=== PATIENT | female | born 1955 | race Caucasian/White ===

== ENCOUNTER 2017-07-04 07:58 | Emergency (ER) | payer MEDICAID ==
[~2017-07-04] VITALS: Ht 162.6 cm; Wt 68.9 kg
[~2017-07-04 07:58] MED LIST: BACDS PO; CHLO25TA2 PO; CLIN300C53 PO; CLON-529 PO; HYDR-569 PO; LORA1TAB PO; POTA10TA36 PO; VENL150C58 PO
[2017-07-04 08:04] VITALS: BP 145/98
[2017-07-04] MEDS ORDERED: CHLO25CA10 PO (08:46)
== END 2017-07-04 09:05 | disposition home or self-care (01) ==
LOC: ER 07:59
DX: F10.20 Alcohol dependence, uncomplicated (principal); I10 Essential (primary) hypertension; E11.9 Type 2 diabetes mellitus without complications; F15.10 Other stimulant abuse, uncomplicated; F17.200 Nicotine dependence, unspecified, uncomplicated; Z56.0 Unemployment, unspecified; Z88.8 Allergy status to other drugs, medicaments and biological substances; Z79.899 Other long term (current) drug therapy
CPT/HCPCS: 82948; 99283

== ENCOUNTER 2018-10-30 07:36 | Day surgery (SDC) | payer MEDICARE, MEDICAID ==
[~2018-10-30] VITALS: Ht 162.6 cm; Wt 69.8 kg
[2018-10-30] VITALS (7 sets, daily range): BP systolic 112–132; BP diastolic 57–80
[~2018-10-30 07:36] MED LIST changes: +CHLO25CA10 PO; +HYDR-4383 PO; -HYDR-569 PO
[2018-10-30] MEDS ORDERED: PANT20TA3 PO (08:26)
[2018-10-30] MEDS ORDERED: THIA50TA10 PO (08:26)
[2018-10-30] MEDS ORDERED: CALC-491 (08:26)
[2018-10-30] MEDS ORDERED: ATOR40TA PO (08:26)
[2018-10-30] MEDS ORDERED: LACT10SO67 PO (08:26)
[2018-10-30] MEDS ORDERED: METF500T PO (08:26)
[2018-10-30] MEDS ORDERED: LISI-600 PO (08:26)
[2018-10-30] MEDS ORDERED: ANAS1TAB10 PO (08:26)
[2018-10-30] MEDS ORDERED: VENL150C2 PO (08:26)
[2018-10-30] MEDS ORDERED: CHOL100046 PO (08:26)
[2018-10-30] MEDS ORDERED: FURO-150 PO (08:26)
[2018-10-30] MEDS ORDERED: [UNRECOGNIZED DRUG - OTHER] (08:30)
[2018-10-30] MEDS ORDERED: normal saline 1000ml 1,000 ML IV PRN (09:05)
[2018-10-30] MEDS ORDERED: albumin 25% 100mL bottle x 1 IV PRN (09:05)
[2018-10-30] MEDS ORDERED: pneumococcal 23-VAL P-sac vacc 25 mcg/0.5ml vial IMVAC ONE (11:30)
== END 2018-10-30 10:35 | disposition home or self-care (01) ==
LOC: SSTAY O 07:36
PROVIDERS: ATTEND Radiology Diagnostic Radiology
DX: R18.8 Other ascites (principal); F31.9 Bipolar disorder, unspecified; E11.9 Type 2 diabetes mellitus without complications; E78.5 Hyperlipidemia, unspecified; I10 Essential (primary) hypertension; I69.30 Unspecified sequelae of cerebral infarction; Z90.12 Acquired absence of left breast and nipple; Z85.3 Personal history of malignant neoplasm of breast; Z98.890 Other specified postprocedural states; F17.200 Nicotine dependence, unspecified, uncomplicated; F10.10 Alcohol abuse, uncomplicated; Z88.8 Allergy status to other drugs, medicaments and biological substances; Z79.899 Other long term (current) drug therapy
CPT/HCPCS: 49083; C1729; J7030